=== PATIENT | female | born 1945 | race Caucasian/White ===

== ENCOUNTER 2017-05-05 21:38 | Emergency (ER) | payer OTHER ==
[~2017-05-05] VITALS: Ht 152.4 cm; Wt 67.6 kg
--- NOTE | 2017-05-05 21:55 | NUR ---
Placed in room 7. 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 To gown for exam. Side rails up.
--- NOTE | 2017-05-05 22:00 | NUR ---
Patient AOx4, ambulatory, presents to ER with complaint of bilateral hand pain 05/20. Patient states she fell today in the kitchen when she tripped over a cabinet door. Patient denies any injury to head post fall. Denies any dizziness prior to fall. Patient states she is prone for falls and has had previous falls. Daughters at bedside. No acute distress noted at this time.
[2017-05-05 22:01] VITALS: BP_SYST 157
--- NOTE | 2017-05-05 22:02 | NUR ---
ER MD Puckett at bedside examining patient.
[2017-05-05] MEDS ORDERED: KETOROLAC TROMETHAMINE 30 MG VIAL IM ONE (22:15)
[2017-05-05] MEDS ORDERED: LORazepam 1 MG TABLET PO ONE (23:00)
[2017-05-05] MEDS ORDERED: HYDROmorphone 1 MG INJ. 1 MG/ML AMPUL IM ONE (23:00)
--- NOTE | 2017-05-05 23:05 | NUR ---
No adverse reactions noted after medication administration. Will continue to monitor.
[2017-05-06] MEDS ORDERED: ONDANSETRON 4 MG ODT TAB PO ONE (01:00)
[2017-05-06 01:25] VITALS: BP_SYST 136
--- NOTE | 2017-05-06 01:25 | NUR ---
Patient given written and verbal discharge instructions and verbalizes understanding. ER MD discussed with patient the results and treatment provided. Patient in stable condition. ID arm band removed. No Rx given. Patient educated on pain management and to follow up with PMD in 2-3 days. Pain Scale 0/10 Opportunity for questions provided and answered.
== END 2017-05-06 01:25 | disposition home or self-care (01) ==
LOC: SED 21:38
DX: S63.281A Dislocation of proximal interphalangeal joint of left index finger, initial encounter (principal); S63.104A Unspecified dislocation of right thumb, initial encounter; S90.511A Abrasion, right ankle, initial encounter; S40.211A Abrasion of right shoulder, initial encounter; I10 Essential (primary) hypertension; E78.00 Pure hypercholesterolemia, unspecified; Z88.0 Allergy status to penicillin; W01.0XXA Fall on same level from slipping, tripping and stumbling without subsequent striking against object, initial encounter; Y93.89 Activity, other specified; Y92.89 Other specified places as the place of occurrence of the external cause; Y99.8 Other external cause status
CPT/HCPCS: 26770; 73060; 73130; 73502; 73590; 96372; 99284; J1170; J1885; Q0162